=== PATIENT | female | born 1990 | race Native Hawaiian/Other Pacific Islander ===

== ENCOUNTER 2022-02-02 09:12 | Emergency (ER) | payer SELFPAY ==
[2022-02-02 09:20] VITALS: BP 130/92; PULSE 83; RESP 14; TEMP 36.9; O2SAT 98; BMI 25.6
--- NOTE | 2022-02-02 09:48 | ED.GENADULT ---
HPI - General Adult General Chief complaint: Sore Throat Stated complaint: Short of breath, rash all over Time Seen by Provider: 02/02/22 09:43 Source: patient Mode of arrival: ambulatory Limitations: no limitations History of Present Illness HPI narrative: 31-year-old female coming in today complaining of a sore throat going on for 2 days. Woke up this morning with a rash throughout her body. No fevers or chills. It does hurt to swallow with ibuprofen and Tylenol do help her symptoms and she is able to stay hydrated. She denies any chest or neck pain. She denies any diarrhea or sick contacts. Related Data Previous Rx's Medication Instructions Recorded amoxicillin 500 mg capsule 500 mg PO BID 10 days #20 caps 02/02/22 Allergies Allergy/AdvReac Type Severity Reaction Status Date / Time No Known Drug Allergies Allergy Verified 02/02/22 09:31 Review of Systems Status of ROS: Reports: 10 or more systems reviewed and unremarkable except as noted in History and below [facility] Social History Smoking Status: Current every day smoker What tobacco products do you use: cigarettes How often do you have a drink containing alcohol: 2-3 times a week AUDIT-C Alcohol total score: 3 Non-prescribed substance use: former substance user Exam Narrative: Exam Narrative: Well-nourished well-developed patient in no acute distress. Alert and oriented. Answers questions appropriately. Mood and affect are appropriate. Thoughts are goal oriented and rational. No tangential or magical thinking noted. Patient speaks in full sentences without needing to catch her breath. HEENT: Normocephalic atraumatic. Pupils are equally round reactive to light. Extraocular muscles are intact. Conjunctivae are moist without any icterus noted. Moist mucous membranes. Posterior pharynx shows tonsillar swelling, erythema and bilateral exudates. Soft palate is in its normal position, no swelling of the uvula or soft palate present. Neck is soft without any lymphadenopathy or thyromegaly. No masses are appreciated. Cardiovascular: Heart is regular rate and rhythm S1 and S2 are present. Lungs: Clear to auscultation bilaterally no wheezes rhonchi or rales are appreciated. Patient takes deep breaths without any discomfort. Skin: Well perfused. She has a fine sandpaper-like rash down her neck and chest. Seems to be resolving over the rest of the body. Const: Vital Signs, click to edit/add: Vital Signs - 24 hr 02/02/22 09:20 Temperature 98.5 F Pulse Rate [Pulse Oximeter] 83 Respiratory Rate 14 Blood Pressure [Ri ght Upper Arm] 130/92 H Pulse Oximetry 98 Oxygen Delivery Me thod Room Air Course Vital Signs Vital signs: Initial Vital Signs Temperature 98.5 F 02/02/22 09:20 Temperature Source Temporal Artery Scan 02/02/22 09:20 Pulse Rate 83 02/02/22 09:20 Pulse Rhythm 02/02/22 09:20 Respiratory Rate 14 02/02/22 09:20 Blood Pressure 130/92 H 02/02/22 09:20 Blood Pressure Mean 104 02/02/22 09:20 Blood Pressure Position Sitting 02/02/22 09:20 Pulse Oximetry 98 02/02/22 09:20 Oxygen Delivery Method 02/02/22 09:20 Vital Signs Temperature 98.5 F 02/02/22 09:20 Pulse Rate 83 02/02/22 09:20 Respiratory Rate 14 02/02/22 09:20 Blood Pressure 130/92 H 02/02/22 09:20 Pulse Oximetry 98 02/02/22 09:20 Oxygen Delivery Method 02/02/22 09:20 Temperature 98.5 F 02/02/22 09:20 Pulse Rate 83 02/02/22 09:20 Respiratory Rate 14 02/02/22 09:20 Blood Pressure 130/92 H 02/02/22 09:20 Pulse Oximetry 98 02/02/22 09:20 Oxygen Delivery Method 02/02/22 09:20 Medical Decision Making [facility] Narrative Medical decision making narrative: 31-year-old female with a very classic appearing case of strep pharyngitis. Will treat with amoxicillin. Discussed reasons for follow-up. Discharge Plan Discharge Clinical Impression: Acute streptococcal pharyngitis Patient Disposition: Home, Self-Care Condition: Stable Additional Instructions: Take all antibiotics as prescribed. Return to the ER if you are getting worse instead of better over the next 1-2 days. Okay to use Tylenol and/or ibuprofen as needed/as directed for discomfort. Make sure to stay well hydrated by drinking small amounts of fluid frequently throughout the day. Prescriptions: New amoxicillin 500 mg capsule 500 mg PO BID 10 Days Qty: 20 0RF Stand Alone Forms: [facility] Info Instructions
[2022-02-02 10:05] VITALS: BP 130/92; PULSE 83; RESP 14; TEMP 36.9; O2SAT 98
== END 2022-02-02 10:14 | disposition home or self-care (01) ==
LOC: ED 09:59
PROVIDERS: Emergency Provider Family Medicine
DX: J02.0 Streptococcal pharyngitis (principal); B95.5 Unspecified streptococcus as the cause of diseases classified elsewhere
CPT/HCPCS: 99282; 99283

== ENCOUNTER 2022-06-05 09:24 | Emergency (ER) | payer SELFPAY ==
[2022-06-05 09:32] VITALS: BP 133/72; PULSE 74; RESP 16; TEMP 36.7; O2SAT 99; BMI 25.6
[2022-06-05 11:30] LABS: Basophils Absolute Auto 0.01 K/uL (0.00-0.30); Basophils Percent Auto 0.1 % (0.0-3.0); Eosinophils Absolute Auto 0.01 K/uL (0.00-0.50); Eosinophils Percent Auto 0.1 % (0.0-7.0); Hematocrit 39.4 % (33.0-51.0); Hemoglobin* 13.1 gm/dL (12.0-16.0); Immature Granulocytes Abs Auto 0.01 K/uL (0.00-0.30); Immature Granulocytes Pct Auto 0.1 %; Lymphocytes Percent Auto 15.4 % (20-44); Mean Corpuscular HGB Conc 33 gm/dL (32-36); Mean Corpuscular Hemoglobin 28 pg (26-34); Mean Corpuscular Volume 84 fL (80-100); Monocytes Percent Auto 2.7 % (0.0-11.0); Neutrophils Percent Auto 81.6 % (42.0-72.0); Platelet Count* 275 K/uL (140-440); RDW Coefficient of Variation % 12.8 % (11.5-15.5); Red Blood Count 4.67 m/uL (4.00-5.20); White Blood Count* 8.87 K/uL (4.50-11.00)
[2022-06-05] MEDS: ONDANSETRON 2 MG/ML inj 4 MG IVP (11:30)
[2022-06-05] MEDS: 0.9 % SODIUM CHLORIDE 1000 ml 1,000 ML IV (11:31)
[2022-06-05 11:32] LABS: Slide Review Reflex No
[2022-06-05 11:44] LABS: Chloride* 105 mmol/L (96-114); Potassium* 3.7 mmol/L (3.6-5.1); Sodium* 139 mmol/L (135-149)
[2022-06-05 11:47] LABS: Blood Urea Nitrogen* 9 mg/dL (5-24); Carbon Dioxide* 21 mmol/L (20-32); Creatinine* 0.5 mg/dL (0.5-1.5); Est. Creatinine Clearance* 130.12; Estimated Glomerular Filt Rate 129 ml/min
[2022-06-05 11:48] LABS: Calcium* 9.2 mg/dL (8.4-10.6); Glucose* 77 mg/dL (60-115)
--- NOTE | 2022-06-05 11:58 | CRLHL7_ITS ---
For Patients: As a result of the Century Cures Act, medical imaging exams and procedure reports are released immediately into your electronic medical record. You may view this report before your referring provider. If you have questions, please contact your health care provider. Indication: Cough Technique: Chest 2 views Comparison: None Findings/Impression: Cardiovascular and mediastinum: Heart size and vasculature are normal in caliber and appearance. Mediastinum is within normal limits. Lungs and pleural spaces: Lungs are clear. No sign of infiltrate or mass. No sign of pleural effusion. No pneumothorax. Bones and soft tissues: No significant findings. Dictated by Cornelio Ocampo MD @ 06/05/2022 1:28:16 PM (Electronically Signed)
[2022-06-05 12:06] LABS: PCR FLU A Negative PCR FLU A (Negative); PCR FLU B Negative PCR FLU B (Negative); PCR RSV Negative PCR RSV (Negative)
[2022-06-05 12:11] LABS: SARS PCR* Negative SARS-CoV-2 (Negative)
[2022-06-05 12:50] VITALS: BP 102/64; PULSE 70; O2SAT 99
[2022-06-05 14:19] VITALS: BP 107/70; PULSE 66; O2SAT 99
--- NOTE | 2022-06-05 16:08 | ED_ITS ---
HPI - Nausea/Vomiting/Diarrhea General Date Seen: 06/05/22 Chief complaint: Nausea/Vomiting Stated complaint: Vomiting Time Seen by Provider: 06/05/22 11:03 Source: patient Mode of arrival: ambulatory Limitations: no limitations History of Present Illness HPI Narrative: Patient is a zara 32-year-old female who presents here for evaluation of vomiting, a little bit a nausea no vomiting tends to occur when she has coughing jag. No fevers or chills although couple days ago she did feel somewhat ill, there is no rashes, she has had no dysuria frequency, she does not think she is , she has a decreased urination, because she has not been taking oral fluids very well. Denies any chest pain, MD elicited complaint: nausea and vomiting Onset (ago): day(s) Description of vomiting: food contents and watery Associated nausea: Yes Associated abdominal pain: No Location of pain: none Relieving factors: none Associated symptoms: denies other symptoms Related Data Previous Rx's Medication Instructions Recorded ondansetron 4 mg disintegrating 4 mg PO Q8-12H PRN nausea and 06/05/22 tablet vomiting #14 tabs Allergies Allergy/AdvReac Type Severity Reaction Status Date / Time No Known Drug Allergies Allergy Verified 02/02/22 09:31 Review of Systems Status of ROS: Reports: 10 or more systems reviewed and unremarkable except as noted in History and below GI: Reports: nausea PFSH PFSH Social History Smoking Status: Current every day smoker What tobacco products do you use: cigarettes How often do you have a drink containing alcohol: 2-3 times a week AUDIT-C Alcohol total score: 3 Non-prescribed substance use: former substance user Exam Narrative: Exam Narrative: Onc on examination room 4 she is in no apparent distress she is pleasant alert speaking to me normally, pupils equal round reactive to light there is no scleral icterus redness TMs are normal oropharynx normal there is no adenopathy anterior posterior chains, her chest is clear, there is no meningismus, heart sounds are normal abdomen is soft there is no guarding no no organomegaly, bowel sounds are normal, no tenderness is listed extremities are all normal, hydration status is within normal limits. And she moves extremities independently and well with normal neurologic function. Const: Vital Signs, click to edit/add: Vital Signs - 24 hr 06/05/22 09:32 06/05/22 12:50 06/05/22 14:19 Temperature 98.0 F Pulse Rate [Left P ulse Oximeter] 74 70 66 Respiratory Rate 16 Blood Pressure [Ri ght Upper Arm] 133/72 102/64 107/70 Pulse Oximetry 99 99 99 Oxygen Delivery Me thod Room Air Room Air Room Air Documenting provider has reviewed patient's vital signs: yes Course Course Hospital Course: Patient improved in her time here, she has the no further vomiting she received fluids, along with some Zofran. Is requesting discharge Vital Signs Vital signs: Initial Vital Signs Temperature 98.0 F 06/05/22 09:32 Temperature Source Temporal Artery Scan 06/05/22 09:32 Pulse Rate 74 06/05/22 09:32 Pulse Rhythm 06/05/22 09:32 Pulse Strength 3+ Normal 06/05/22 09:32 Respiratory Rate 16 06/05/22 09:32 Blood Pressure 133/72 06/05/22 09:32 Blood Pressure Mean 92 06/05/22 09:32 Blood Pressure Position Sitting 06/05/22 09:32 Pulse Oximetry 99 06/05/22 09:32 Oxygen Delivery Method 06/05/22 09:32 Vital Signs Temperature 98.0 F 06/05/22 09:32 Pulse Rate 74 06/05/22 09:32 Respiratory Rate 16 06/05/22 09:32 Blood Pressure 133/72 06/05/22 09:32 Pulse Oximetry 99 06/05/22 09:32 Oxygen Delivery Method 06/05/22 09:32 Temperature 98.0 F 06/05/22 09:32 Pulse Rate 66 06/05/22 14:19 Respiratory Rate 16 06/05/22 09:32 Blood Pressure 107/70 06/05/22 14:19 Pulse Oximetry 99 06/05/22 14:19 Oxygen Delivery Method 06/05/22 14:19 MDM - Nausea/Vomiting/Diarrhea MDM Narrative Medical decision making narrative: Differential diagnosis includes but is not limited to viral gastroenteritis, drug food poisoning, pyloric stenosis, gastritis, pancreatitis, hepatitis, cholecystitis, appendicitis, bowel obstruction, hyperemesis, cyclic vomiting syndrome, bulimia nervosa, migraine headache, motion sickness and medication side effect. These include the life threatening complications of appendicitis, drug food poisoning and bowel obstruction. Medical Records Attestation: I reviewed the patient's medical records. Lab Data Attestation: I reviewed the patient's lab results. Labs: Lab Results 06/05/22 06/05/22 06/05/22 Range/Units 11:15 11:15 11:15 WBC 8.87 (4.50-11.00) K/uL RBC 4.67 (4.00-5.20) m/uL Hgb 13.1 (12.0-16.0) gm/dL Hct 39.4 (33.0-51.0) % MCV 84 (80-100) fL MCH 28 (26-34) pg MCHC 33 (32-36) gm/dL RDW Coeff of Mikayla 12.8 (11.5-15.5) % Plt Count 275 (140-440) K/uL Neut % (Auto) 81.6 H (42.0-72.0) % Lymph % (Auto) 15.4 L (20-44) % [place] % (Auto) 2.7 (0.0-11.0) % Eos % (Auto) 0.1 (0.0-7.0) % Baso % (Auto) 0.1 (0.0-3.0) % Neut # (Auto) 7.20 H (1.7-7.0) K/uL Lymph # (Auto) 1.40 (0.90-2.90) K/uL [place] # (Auto) 0.20 (0.00-0.90) K/UL Eos # (Auto) 0.01 (0.00-0.50) K/uL Baso # (Auto) 0.01 (0.00-0.30) K/uL Sodium 139 (135-149) mmol/L Potassium 3.7 (3.6-5.1) mmol/L Chloride 105 (96-114) mmol/L Carbon Dioxide 21 (20-32) mmol/L BUN 9 (5-24) mg/dL Creatinine 0.5 (0.5-1.5) mg/dL Estimated Creat Clear 130.12 Estimated GFR 129 ml/min Glucose 77 (60-115) mg/dL Calcium 9.2 (8.4-10.6) mg/dL SARS-CoV-2 (PCR) Negative SARS-CoV-2 (Negative) Influenza Type A (PCR) Negative PCR FLU A (Negative) Influenza Type B (PCR) Negative PCR FLU B (Negative) RSV (PCR) Negative PCR RSV (Negative) Discharge Plan Discharge Clinical Impression: Cough, Nausea & vomiting Patient Disposition: Home, Self-Care Condition: Stable Instructions: Acute Nausea and Vomiting (ED), Acute Cough (ED) Additional Instructions: Home rest use Zofran, lots of fluids rest I think this will run its course, as I believe it is most likely viral. Return as needed Prescriptions: New ondansetron 4 mg tablet,disintegrating 4 mg PO Q8-12H PRN (Reason: nausea and vomiting) Qty: 14 0RF Follow Up/Referrals: Provider,Not a Local [Primary Care Provider] - Stand Alone Forms: [employer] Info Instructions
== END 2022-06-05 14:22 | disposition home or self-care (01) ==
PROVIDERS: Emergency Provider Family Medicine
DX: R05.9 Cough, unspecified (principal); R11.2 Nausea with vomiting, unspecified
CPT/HCPCS: 36415; 71046; 80048; 85025; 87502; 87634; 87635; 96361; 96374; 99283; 99284; J2405; J7030

== ENCOUNTER 2022-06-10 15:46 | Emergency (ER) | payer SELFPAY ==
[2022-06-10 15:49] VITALS: BP 156/74; PULSE 80; RESP 18; TEMP 36.8; O2SAT 99; BMI 25.6
--- NOTE | 2022-06-10 16:01 | ED.GENADULT ---
HPI - General Adult General Time Seen by Provider: 16:01 Date Seen: 06/10/22 Chief complaint: Nausea/Vomiting Stated complaint: Vomiting Time Seen by Provider: 06/10/22 15:47 Source: patient Mode of arrival: ambulatory Limitations: no limitations History of Present Illness HPI narrative: Patient is a 32-year-old female who is here few days ago for nausea and vomiting. She got some Zofran that helped her quite a bit. She had a full battery of tests that were all unremarkable including viral testing, electrolytes, CBC. Patient reports she is generally quite healthy, she has had a slight cough she had a normal chest x-ray done within the last few days. She denies last menstrual period was early this month however. Patient has no chest pain breathing difficulty abdominal pain. No vaginal bleeding, no dysuria. No skin rashes no nuchal rigidity Related Data Previous Rx's Medication Instructions Recorded ondansetron 4 mg disintegrating 4 mg PO Q8-12H PRN nausea and 06/05/22 tablet vomiting #14 tabs Allergies Allergy/AdvReac Type Severity Reaction Status Date / Time No Known Drug Allergies Allergy Verified 02/02/22 09:31 Review of Systems Status of ROS: Reports: 10 or more systems reviewed and unremarkable except as noted in History and below PFSH PFSH Social History Smoking Status: Current every day smoker What tobacco products do you use: cigarettes How often do you have a drink containing alcohol: 2-3 times a week AUDIT-C Alcohol total score: 3 Non-prescribed substance use: former substance user and marijuana (any form) Exam Narrative: Exam Narrative: Objective vital signs unremarkable other than slightly elevated blood pressure HEENT is unremarkable no facial asymmetry mouth well-hydrated Neck is supple Chest clear Heart rhythm regular without murmur Abdomen benign Extremities are no edema Neurologic nonfocal in upper lower extremities Const: Vital Signs, click to edit/add: Vital Signs - 24 hr 06/10/22 15:49 Temperature 98.2 F Pulse Rate [Right Pulse Oximeter] 80 Respiratory Rate 18 Blood Pressure [Ri ght Upper Arm] 156/74 H Pulse Oximetry 99 Oxygen Delivery Me thod Room Air Course Vital Signs Vital signs: Initial Vital Signs Temperature 98.2 F 06/10/22 15:49 Temperature Source Temporal Artery Scan 06/10/22 15:49 Pulse Rate 80 12/25/22 15:49 Respiratory Rate 18 06/10/22 15:49 Blood Pressure 156/74 H 06/10/22 15:49 Blood Pressure Mean 101 06/10/22 15:49 Blood Pressure Position Sitting 06/10/22 15:49 Pulse Oximetry 99 06/10/22 15:49 Oxygen Delivery Method 06/10/22 15:49 Vital Signs Temperature 98.2 F 06/10/22 15:49 Pulse Rate 80 06/10/22 15:49 Respiratory Rate 18 06/10/22 15:49 Blood Pressure 156/74 H 06/10/22 15:49 Pulse Oximetry 99 06/10/22 15:49 Oxygen Delivery Method 06/10/22 15:49 Temperature 98.2 F 06/10/22 15:49 Pulse Rate 80 06/10/22 15:49 Respiratory Rate 18 06/10/22 15:49 Blood Pressure 156/74 H 06/10/22 15:49 Pulse Oximetry 99 06/10/22 15:49 Oxygen Delivery Method 06/10/22 15:49 Medical Decision Making [facility] Narrative Medical decision making narrative: Patient was recently here for nausea vomiting and had a full battery tests are unremarkable. At this point she appears clinically nontoxic. She has had a mild viral illness recently I think it be reasonable to give her additional Zofran will give her some now and then prescription through [facility] for additional Zofran. Will also recheck her labs alert specific electrolytes CBC, test. This is the patient will be allowed to go home given that she appears nontoxic and the Zofran was working for her she should follow up with primary care in the next 2-3 days certainly sooner change concerns worsening she was comfortable plan will follow up as directed. Lab Data Labs: Lab Results 06/10/22 06/10/22 06/10/22 Range/Units 16:15 16:15 16:15 WBC 8.17 (4.50-11.00) K/uL RBC 4.83 (4.00-5.20) m/uL Hgb 13.7 (12.0-16.0) gm/dL Hct 40.1 (33.0-51.0) % MCV 83 (80-100) fL MCH 28 (26-34) pg MCHC 34 (32-36) gm/dL RDW Coeff of Mikayla 12.6 (11.5-15.5) % Plt Count 272 (140-440) K/uL Neut % (Auto) 75.0 H (42.0-72.0) % Lymph % (Auto) 20.8 (20-44) % [place] % (Auto) 3.5 (0.0-11.0) % Eos % (Auto) 0.4 (0.0-7.0) % Baso % (Auto) 0.2 (0.0-3.0) % Neut # (Auto) 6.10 (1.7-7.0) K/uL Lymph # (Auto) 1.70 (0.90-2.90) K/uL [place] # (Auto) 0.30 (0.00-0.90) K/UL Eos # (Auto) 0.03 (0.00-0.50) K/uL Baso # (Auto) 0.02 (0.00-0.30) K/uL Sodium 140 (135-149) mmol/L Potassium 3.4 L (3.6-5.1) mmol/L Chloride 104 (96-114) mmol/L Carbon Dioxide 22 (20-32) mmol/L BUN 9 (5-24) mg/dL Creatinine 0.5 (0.5-1.5) mg/dL Estimated Creat Clear 130.12 Estimated GFR 129 ml/min Glucose 85 (60-115) mg/dL Calcium 9.8 (8.4-10.6) mg/dL C-Reactive Protein 0.7 (0.5-1.0) mg/dL HCG, Qual Positive (Negative) Discharge Plan Discharge Clinical Impression: Nausea & vomiting Patient Disposition: Home, Self-Care Condition: Stable Additional Instructions: Rest, fluids, Zofran as needed, follow-up with primary care in the next 2-3 days, light diet recommended as well. Activity Level: Light activity Discharge Diet: Regular Prescriptions: No Action ondansetron 4 mg tablet,disintegrating 4 mg PO Q8-12H PRN (Reason: nausea and vomiting) Qty: 14 0RF Follow Up/Referrals: Provider,Not a Local [Primary Care Provider] - Stand Alone Forms: [employer] Info Instructions
[2022-06-10] MEDS: ONDANSETRON ODT 4 MG TAB PO (16:06)
[2022-06-10 16:25] LABS: Basophils Absolute Auto 0.02 K/uL (0.00-0.30); Basophils Percent Auto 0.2 % (0.0-3.0); Eosinophils Absolute Auto 0.03 K/uL (0.00-0.50); Eosinophils Percent Auto 0.4 % (0.0-7.0); Hematocrit 40.1 % (33.0-51.0); Hemoglobin* 13.7 gm/dL (12.0-16.0); Immature Granulocytes Abs Auto 0.01 K/uL (0.00-0.30); Immature Granulocytes Pct Auto 0.1 %; Lymphocytes Percent Auto 20.8 % (20-44); Mean Corpuscular HGB Conc 34 gm/dL (32-36); Mean Corpuscular Hemoglobin 28 pg (26-34); Mean Corpuscular Volume 83 fL (80-100); Monocytes Percent Auto 3.5 % (0.0-11.0); Platelet Count* 272 K/uL (140-440); RDW Coefficient of Variation % 12.6 % (11.5-15.5); Red Blood Count 4.83 m/uL (4.00-5.20); White Blood Count* 8.17 K/uL (4.50-11.00)
[2022-06-10 16:26] LABS: Slide Review Reflex No
--- NOTE | 2022-06-10 16:30 | ED.NURSE ---
pt given instymeds for peng
[2022-06-10 16:54] LABS: Chloride* 104 mmol/L (96-114); Potassium* 3.4 mmol/L (3.6-5.1); Sodium* 140 mmol/L (135-149)
[2022-06-10 16:57] LABS: Creatinine* 0.5 mg/dL (0.5-1.5); Est. Creatinine Clearance* 130.12; Estimated Glomerular Filt Rate 129 ml/min
[2022-06-10 16:58] LABS: Blood Urea Nitrogen* 9 mg/dL (5-24); Calcium* 9.8 mg/dL (8.4-10.6); Carbon Dioxide* 22 mmol/L (20-32); Glucose* 85 mg/dL (60-115)
[2022-06-10 17:01] LABS: C Reactive Protein* 0.7 mg/dL (0.5-1.0)
[2022-06-10 17:05] LABS: HCG Qualitative Serum* Positive (Negative)
== END 2022-06-10 16:31 | disposition home or self-care (01) ==
LOC: ED 16:18
PROVIDERS: Emergency Provider Family Medicine
DX: R11.2 Nausea with vomiting, unspecified (principal); Z32.01 Encounter for pregnancy test, result positive
CPT/HCPCS: 36415; 80048; 84703; 85025; 86140; 99283; A9270

== ENCOUNTER 2024-07-06 17:14 | Emergency (ER) | payer OTHER, SELFPAY ==
[2024-07-06 17:17] VITALS: BP 119/83; PULSE 69; RESP 18; TEMP 36.8; O2SAT 99; BMI 26.5
[2024-07-06 17:57] LABS: Strep A DNA Probe* DETECTED (Not Detectd)
[2024-07-06 18:10] LABS: PCR FLU A POSITIVE PCR FLU A (Negative); PCR FLU B Negative PCR FLU B (Negative); PCR RSV Negative PCR RSV (Negative); SARS PCR* Negative SARS-CoV-2 (Negative)
--- NOTE | 2024-07-06 18:16 | ED.GENADULT ---
HPI - General Adult General Chief complaint: Sore Throat Stated complaint: sore throat Time Seen by Provider: 07/06/24 18:06 History of Present Illness HPI narrative: This 34-year-old female comes in reporting sore throat, fever, cough, nasal congestion, and body aches and pains. These symptoms started almost a week ago. She arrives here with normal vital signs. Related Data Previous Rx's ?Medication ?Instructions ?Recorded amoxicillin 500 mg capsule 500 mg PO TID 7 days #21 caps 07/06/24 Allergies Allergy/AdvReac Type Severity Reaction Status Date / Time No Known Drug Allergies Allergy Verified 02/02/22 09:31 Review of Systems Status of ROS: Reports: 10 or more systems reviewed and unremarkable except as noted in History and below Narrative: Constitutional: No fevers, no weight gain or loss. Eyes: No discharge. No vision changes. HENT: No ear pain. She reports nasal congestion and sore throat. Cardiovascular: No chest pain, no palpitations. Respiratory: No shortness of breath, no wheezes. She reports a cough. Gastrointestinal: No abdominal pain, no vomiting, no diarrhea. Genitourinary: No dysuria, no hematuria. Musculoskeletal: Normal range of motion. Skin: No rashes, no pruritis. Neurological: No dizziness, weakness, sensory change, speech change. Endo/Heme/Allergies: No bruising or bleeding. No polydipsia. Pysch: no suicidality, no anxiety, no insomnia. All other systems reviewed and are negative. [facility] Social History Smoking Status: Current every day smoker What tobacco products do you use: cigarettes How often do you have a drink containing alcohol: 2-3 times a week AUDIT-C Alcohol total score: 3 Non-prescribed substance use: former substance user and marijuana (any form) Exam Narrative: Exam Narrative: Constitutional: Well-developed, well-nourished, no acute distress. HEENT: Normocephalic, atraumatic. Bilateral tonsillar hypertrophy without exudate. Pharyngeal erythema. Neck: Normal range of motion. Nontender. Supple. Heart: Regular. No murmurs. Normal rate. Intact distal pulses. Lungs: Clear to auscultation. No chest discomfort. No wheezes, rhonchi, or rales. Abdomen: Normal bowel sounds. Nontender. No rebound tenderness. Genitalia: Deferred. Back: No midline tenderness. Normal range of motion. Extremities: Normal range of motion. No injury. Skin: Intact. No rash. Warm. No erythema or pallor. Neurologic: No altered sensation. No weakness. Alert and oriented. Psychiatric: No suicidality. No anxiety or depression. No insomnia. Nursing notes and vitals signs are reviewed. Const: Vital Signs, click to edit/add: Vital Signs - 24 hr 07/06/24 17:17 Temperature 98.3 F Pulse Rate [Pulse Oximeter] 69 Respiratory Rate 18 [facility] 119/83 Pulse Oximetry 99 Oxygen Delivery Me thod Room Air Course Vital Signs Vital signs: Initial Vital Signs Temperature 98.3 F 07/06/24 17:17 Temperature Source Temporal Artery Scan 07/06/24 17:17 Pulse Rate 69 07/06/24 17:17 Pulse Rhythm Regular 07/06/24 17:17 Respiratory Rate 18 07/06/24 17:17 Blood Pressure 119/83 07/06/24 17:17 Blood Pressure Mean 95 07/06/24 17:17 Blood Pressure Position Sitting 07/06/24 17:17 Pulse Oximetry 99 07/06/24 17:17 Oxygen Delivery Method Room Air 07/06/24 17:17 Vital Signs Temperature 98.3 F 07/06/24 17:17 Pulse Rate 69 07/06/24 17:17 Respiratory Rate 18 07/06/24 17:17 Blood Pressure 119/83 07/06/24 17:17 Pulse Oximetry 99 07/06/24 17:17 Oxygen Delivery Method Room Air 07/06/24 17:17 Temperature 98.3 F 07/06/24 17:17 Pulse Rate 69 07/06/24 17:17 Respiratory Rate 18 07/06/24 17:17 Blood Pressure 119/83 07/06/24 17:17 Pulse Oximetry 99 07/06/24 17:17 Oxygen Delivery Method Room Air 07/06/24 17:17 Medical Decision Making MDM Narrative Medical decision making narrative: This patient comes in with above-stated upper respiratory symptoms. Her rapid strep test and influenza a test returned positive. She is outside of the window of time where Tamiflu would be of assistance for her. She did receive an oral dose of dexamethasone and a prescription for amoxicillin. Lab Data Labs: Lab Results 07/06/24 Range/Units 17:30 SARS-CoV-2 (PCR) Negative SARS-CoV-2 (Negative) Influenza Type A (PCR) POSITIVE PCR FLU A A (Negative) Influenza Type B (PCR) Negative PCR FLU B (Negative) RSV (PCR) Negative PCR RSV (Negative) Group A Strep DNA DETECTED A (Not Detectd) Discharge Plan Discharge Clinical Impression: Acute streptococcal pharyngitis, Influenza A Patient Disposition: Home, Self-Care Condition: Stable Additional Instructions: Take medication as directed. Use [id number] medicines also as needed and directed. Follow up with MD return if worsening. Prescriptions: New amoxicillin 500 mg capsule 500 mg PO TID 7 Days Qty: 21 0RF Follow Up/Referrals: Provider,Not a Local [Primary Care Provider] - Stand Alone Forms: [employer] Info Instructions
[2024-07-06] MEDS: dexAMETHasone 4 MG/ML VIAL 10 MG IM (18:40)
--- OUTSIDE RECORDS SUMMARY | 2024-07-07 00:12 | XMS_ITS | Clinical Summary ---
Author Organization [employer] [facility] Address [place], [place] [address] Care Team Providers Care Rotary Driller Prospecting Name Role Phone Pcp, No Primary Care Provider Unavailabl e Allergies No known active allergies Medications No known medications Active Problems Problem Noted Date Diagnosed Date Nexplanon in place 05/26/2018 Latent tuberculosis 10/24/2010 Overview (10/24/2010): Positive PPD September 2010 Resolved Problems Problem Noted Date Diagnosed Date Resolved Date Major depressive disorder, r ecurrent episode, severe, specified as with psychotic behavior 08/20/2008 07/23/2017 Polysubstance dependence 08/20/200811/2017 Anxiety D/O, NOS. 06/24/2008 06/24/2008 Anxiety Disorder NOS 06/23/2008 009 Major Depressive Disorder, S brandon Episode, Moderate. 05/25/2008 08/20/2008 Insomnia 05/25/2008 08/20/2008 Self inflicted injury 2017 Overview (05/25/2008): pt cuts on arms and face about 5x a month Immunizations Name Administration Dates Next Due DTaP 04/16/2000,08/28/1999,03/26/1997 HPV 9 (Gardasil 9) 05/26/2018 Hepatitis B (Peds) 07/16/2000,12/05/1999, 000 Human Papilloma Virus Vaccine 01/14/2013, 010 Inactivated Polio Vaccine 10/30/1999,08/28/1999, 05/21/1997 Influenza A (H1N1), Inactiva fabiola (Age >=3 Years) 05/27/2009 MMR 10/30/1999,08/28/1999 Meningococcal Vaccine (Menactra) 07/01/2009 Td (Age >=7 Years) 04/16/2000 Tdap 07/01/2009 Varicella Vaccine 07/01/2009,06/17/1994 Family History Medical History Relation Name Comments Cancer Maternal Grandfather brain Diabetes Mother pre-diabetes Heart Disease No Family History Psychiatric illness No Family History Relation Name Status Comments Father Alive Maternal Grandfather Maternal Grandmother Alive Mother Alive Sister 1 Alive Sister 2 Alive Sister 3 Alive Social History Tobacco Use Types Packs/Day Years Used Date Smoking Tobacco: Former Cigarettes Smokeless Tobacco: Never Tobacco Cessation:Counseling Given: Yes Alcohol Use Standard Drinks/Week Comments Yes 0 (1 standard drink = 0.6 oz pur e alcohol) occassional PHQ-2 Answer Date Recorded PHQ-2 Score 0 08/17/2018 Comments No Sex and Gender Information Value Date Recorded Sex Assigned at Not on file Legal Sex Female 5:41 AM EBD TEACHER Gender Identity Not on file Sexual Orientation Not on file 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 Not on file Not on file Not on file Obstetrics History Last Filed Vital Signs Vital Sign Reading Time Taken Comments Blood Pressure 125/75 09/20/2018 11:21 AM CDT Pulse 58 09/20/2018 11:21 AM CDT Temperature 36.4 C (97.5 F) 09/20/2018 11:21 AM CDT Respiratory Rate 18 12/28/2010 3:31 PM CDT Oxygen Saturation 96% 06/02/2018 8:45 AM EBD TEACHER Inhaled Oxygen Concentration - - Weight 67.6 kg (149 lb) 09/20/2018 11:21 AM CDT Height 158.8 cm (5' 2.52) 09/20/2018 11:21 AM C DT Body Mass Index 26.8 09/20/2018 11:21 AM CDT Plan of Treatment Health Maintenance Due Date Last Done Comments Depression screening for age 12+ 05/27/2019 05/27/2018, 05/26/2018, 07/23/2017 Tetanus booster 07/01/2019 07/01/2009, 04/16/2000 BMI (ht and wt on same day) for age 18+ 09/21/2019 09/20/2018, 06/02/2018, 05/26/2018, Additional history exists Pap test for age 21-65 05/26/2021 05/26/2018 COVID-19 vaccine series ( season) 2024 Influenza for age 9-49 02/16/2024 05/27/2009 Tdap Completed 07/01/2009 Hepatitis C screening for age 18-79 Completed 01/14/2013, 09/25/2010, 08/20/2008 HIV for age 15-65 Completed 05/26/2018, , 09/25/2010, Additional history exists Pneumococcal series for age 6-49 Aged Out No longer eligible based on patient's age to complete this topic Procedures Procedure Name Priority Date/Time Associated Diagnosis Comments ANTI HIV 1/2 Routine 05/26/2018 12:12 PM EBD TEACHER Screen for STD (sexually transmitted disease) SPORTS CENTRE MANAGER THIN PREP PAP SCREEN IMAGED Routine 05/26/2018 11:50 AM EBD TEACHER Screening for malignant neoplasm of cervix ANTI HCV Routine 01/14/2013 12:50 PM CDT Screen for STD (sexually transmitted disease) from Last 3 Months or Most Recently Relevant to Health Maintenance Results * ANTI HIV 1/2 (05/26/2018 12:12 PM EBD TEACHER) HIV-1/HIV-2 ANTIBODY Non-Reacti ve Non-Reacti ve 05/26/2018 8:52 PM EBD TEACHER [facility] [employer] [facility] Comment:HIV-1 p24 and HIV-1/ HIV-2 Ab not detected. Blood BLOOD SPECIMEN / Unknown Venipuncture / Unknown 05/26/2018 12:12 PM EBD TEACHER 05/26/2018 12:14 PM EBD TEACHER us Mary Lou Helms MD SEND OUTS Final Result [facility] [address] [place] [address], * SPORTS CENTRE MANAGER THIN PREP PAP SCREEN IMAGED [[id number]] (05/26/2018 11:50 AM EBD TEACHER) Case Report Gynecologic Cytology Report Case: [id number] Authorizing Provider: Mary Lou Helms MD Collected: 05/26/2018 1150 Ordering Location: [facility] Received: 05/26/2018 1208 Clinic First Screen: Cleo Sheikh Specimen: SPORTS CENTRE MANAGER ThinPrep Vial Screening, Cervical 06/07/2018 12:55 PM EBD TEACHER [facility] [employer] [facility] INTERPRETATION/ RESULT NEGATIVE FOR INTRAEPITHELIAL LESION OR MALIGNANCY (NIL) (none) 06/07/2018 12:55 PM EBD TEACHER [facility] ENTRAL LABORATORY NISM(S) Shift in marie suggestive of bacterial vaginosis 06/07/2018 12:55 PM EBD TEACHER [facility] [employer] [facility] SPECIMEN ADEQUACY Satisfactory for evaluation Endocervical component present 06/07/2018 12:55 PM EBD TEACHER [facility] ENTRAL LABORATORY HPV REQUEST HPV if ASCUS 06/07/2018 12:55 PM EBD TEACHER [facility] ENTRAL LAB[facility] Date of LMP 05/12/2018 06/07/2018 12:55 PM EBD TEACHER [facility] EN[facility] Last Pap Date 201406/07/2018 12:55 PM EBD TEACHER [facility] EN[facility]AL LAB[facility] Last Pap Result First Pap/Unknown 12:55 PM EBD TEACHER [facility] ENTRAL LAB[facility]ORY Abnormal Pap or [place] Bx in last 5 years No 06/07/2018 12:55 PM EBD TEACHER [facility] EN[facility]AL LAB[facility]ORY Menstrual Status Regular Periods 06/07/2018 12:55 PM EBD TEACHER [facility] ENTRAL LAB[facility]ATORY [place] Bx Done Today No 06/07/2018 12:55 PM EBD TEACHER [facility] EN[facility]AL LAB[facility] Additional Information None given 06/07/2018 12:55 PM EBD TEACHER [facility] EN[facility]AL LAB[facility]ORY Automated Review Successful 06/07/2018 12:55 PM EBD TEACHER [facility] EN[facility]AL LAB[facility]ORY Comment:Specimen processed s uccessfully by automated head of quality device, ThinPrep Imaging System, [employer] Note The pap test is a screening technique, not a diagnostic procedure. It is used primarily to screen for squamous cancers and precursor lesions. Published studies have shown that it is subject to both false negative and false positive results. The pap test should not be used as the sole means to diagnose or exclude pre-malignant and malignant lesions. Cytology is screened and interpreted at [facility], [facility] - [address], [place] [address] and [place] - [address] [place] [address]; [place] [address] and [facility] - [address]; [place] [address] and [facility] [address]; [place] [address] 06/07/2018 12:55 PM EBD TEACHER [facility]C ENTRAL LABORATORY Other (Cervical) Non-Blood / Unknown 05/26/2018 11:50 AM EBD TEACHER 05/26/2018 12:08 PM EBD TEACHER us Mary Lou Helms MD PATHOLOGY/CYTOLOGY Final Resu lt [facility] [address] [place] [address], [place] * ANTI HCV (01/14/2013 12:50 PM CDT) ANTI HCV Non-reacti ve [facility] Blood specimen (specimen) BLOOD SPECIMEN / Unknown 01/14/2013 12:50 PM CDT 01/14/2013 12:41 PM CDT us Elle Red MD SEND OUTS Final Result [facility] LAB[facility]ORY INTERNAL ZIP [id number] [place] [address] from Last 3 Months or Most Recently Relevant to Health Maintenance Advance Directives * Full Code (Latest Code Status on File) Date Activated Date Inactivated Comments 11/15/2008 3:24 PM 11/24/2008 12:59 PM * Full Code Date Activated Date Inactivated Comments 08/19/2008 6:43 PM 08/26/2008 1:09 PM * Full Code Date Activated Date Inactivated Comments 06/22/2008 8:24 PM 06/29/2008 1:53 PM * Full Code Date Activated Date Inactivated Comments 05/05/2008 9:19 PM 05/09/2008 3:38 PM Care Teams Rotary Driller Prospecting Relationship Specialty Start Date End Date Pcp, No . PCP - General 09/20/18
== END 2024-07-06 18:45 | disposition home or self-care (01) ==
LOC: ED 18:42
PROVIDERS: Emergency Provider Emergency Medicine Emergency Medical Services
DX: J02.0 Streptococcal pharyngitis (principal); J10.1 Influenza due to other identified influenza virus with other respiratory manifestations
CPT/HCPCS: 87631; 87651; 99283; 99284; J1100

== ENCOUNTER 2024-11-09 04:22 | Emergency (ER) | payer OTHER, SELFPAY ==
--- OUTSIDE RECORDS SUMMARY | 2024-11-09 04:24 | XMS_ITS | Clinical Summary ---
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 Not on file Not on file Obstetrics History Last Filed Vital Signs Vital Sign Reading Time Taken Comments Blood Pressure 125/75 09/20/2018 11:21 AM CDT Pulse 58 09/20/2018 11:21 AM CDT Temperature 36.4 C (97.5 F) 09/20/2018 11:21 AM CDT Respiratory Rate 18 12/28/2010 3:31 PM CDT Oxygen Saturation 96% 06/02/2018 8:45 AM TRIMMER LOADER Inhaled Oxygen Concentration - - Weight 67.6 [...] age 21-65 05/26/2021 05/26/2018 COVID-19 vaccine series (2023- season) 2024 Influenza Vaccine (Season Ended) 2025 Hepatitis B series for 19+ Completed 07/16, 12/05/1999, 10/30/1999 Tdap Completed 07/01/2009 Hepatitis C screening for age 18-79 Completed 01/14/2013, 09/25/2010, 08/20/2008 HIV for age 15-65 Completed 05/26/2018, , 09/25/2010, Additional history exists Pneumococcal series for age 6-49 Aged Out No longer eligible based on patient's age to complete this topic Procedures Procedure Name Priority Date/Time Associated Diagnosis Comments ANTI HIV 1/2 Routine 05/26/2018 12:12 PM TRIMMER LOADER Screen for STD (sexually transmitted disease) EDGE GRINDER MACHINE THIN PREP PAP SCREEN IMAGED Routine 05/26/2018 11:50 AM TRIMMER LOADER Screening for malignant neoplasm of cervix ANTI HCV Routine 01/14/2013 12:50 PM CDT Screen for STD (sexually transmitted disease) from Last 3 Months or Most Recently Relevant to Health Maintenance Results * ANTI HIV 1/2 (05/26/2018 12:12 PM TRIMMER LOADER) HIV-1/HIV-2 ANTIBODY Non-Reacti ve Non-Reacti ve 05/26/2018 8:52 PM TRIMMER LOADER [facility] [employer] [facility] Comment:HIV-1 p24 and HIV-1/ HIV-2 Ab not detected. Blood BLOOD SPECIMEN / Unknown Venipuncture / Unknown 05/26/2018 12:12 PM TRIMMER LOADER 05/26/2018 12:14 PM TRIMMER LOADER us Mary Lou Helms MD SEND OUTS Final Result [facility] LABORATORY [address] [place] [address], [place] * EDGE GRINDER MACHINE THIN PREP PAP SCREEN IMAGED [[id number]] (05/26/2018 11:50 AM TRIMMER LOADER) Case Report Gynecologic Cytology Report Case: [id number] Authorizing Provider: Mary Lou Helms MD Collected: 05/26/2018 1150 Ordering Location: [facility] Received: 05/26/2018 1208 Clinic First Screen: Cleo Sheikh Specimen: EDGE GRINDER MACHINE ThinPrep Vial Screening, Cervical 06/07/2018 12:55 PM TRIMMER LOADER [facility] ENTRAL LAB[facility]AT[facility] INTERPRETATION/ RESULT NEGATIVE FOR INTRAEPITHELIAL LESION OR MALIGNANCY (NIL) (none) 06/07/2018 12:55 PM TRIMMER LOADER [facility] ENTRAL LABORATORY at [address]255 TRIMMER LOADER ORGANISM(S) Shift in marie suggestive of bacterial vaginosis 06/07/2018 12:55 PM TRIMMER LOADER [facility] [employer] [facility] ENTRAL LABORATORY SPECIMEN ADEQUACY Satisfactory for evaluation Endocervical component present 06/07/2018 12:55 PM TRIMMER LOADER [facility] ENTRAL LABORATORY HPV REQUEST HPV if ASCUS 06/07/2018 12:55 PM TRIMMER LOADER [facility] EN[facility]AL LAB[facility] Date of LMP 05/12/2018 06/07/2018 12:55 PM TRIMMER LOADER [facility] EN[facility] LAB[facility] Last Pap Date 201406/07/2018 12:55 PM TRIMMER LOADER [facility] EN[facility] Last Pap Result First Pap/Unknown 12:55 PM TRIMMER LOADER [facility] EN[facility]AL LAB[facility] Abnormal Pap or [place] Bx in last 5 years No 06/07/2018 12:55 PM TRIMMER LOADER [facility] EN[facility] LAB[facility] Menstrual Status Regular Periods 06/07/2018 12:55 PM TRIMMER LOADER [facility] ENTRAL LAB[facility] [place] Bx Done Today No 06/07/2018 12:55 PM TRIMMER LOADER [facility] EN[facility] LAB[facility] Additional Information None given 06/07/2018 12:55 PM TRIMMER LOADER [facility] EN[facility]AL LAB[facility] Automated Review Successful 06/07/2018 12:55 PM TRIMMER LOADER [facility] ENTRAL LAB[facility] Comment:Specimen processed s uccessfully by automated insole and outsole splitter device, ThinPrep Imaging System, [employer] Note The pap test is a [...] lesions. Cytology is screened and interpreted at [facility], [facility] Laboratory - [address], [place] [address] and [facility] - [address]; [place] [address] and [facility] - [address]; [place] [address] and [facility] [address]; [place] [address] 06/07/2018 12:55 PM TRIMMER LOADER [facility] LAB[facility]-C ENTRAL LABORATORY Other (Cervical) Non-Blood / Unknown 05/26/2018 11:50 AM TRIMMER LOADER 05/26/2018 12:08 PM TRIMMER LOADER us Mary Lou Helms MD PATHOLOGY/CYTOLOGY Final Resu lt [facility]-CENTRAL LABORATORY [address] [place] [address], [place] * ANTI HCV (01/14/2013 12:50 PM CDT) ANTI HCV Non-reacti ve [facility] Blood specimen (specimen) BLOOD SPECIMEN / Unknown 01/14/2013 12:50 PM CDT 01/14/2013 12:41 PM CDT us Elle Red MD SEND OUTS Final Result [facility] LABORATORY INTERNAL ZIP [id number] [place] [address] from Last 3 Months or Most Recently [...] 9:19 PM 05/09/2008 3:38 PM Care Teams Facility Service Manager Relationship Specialty Start Date End Date Pcp, No . PCP - General 09/20/18
[2024-11-09 04:26] VITALS: BP 127/81; PULSE 85; RESP 18; TEMP 36.8; O2SAT 99; BMI 26.5
--- NOTE | 2024-11-09 04:31 | ED.DENTAL ---
HPI - Dental/Oral General Time Seen by Provider: 04:31 Date Seen: 11/09/24 Chief complaint: Dental/Oral/Mouth Injury/Pain Stated complaint: Left side tooth pain Time Seen by Provider: 11/09/24 04:26 Source: patient, RN notes reviewed and old records reviewed Mode of arrival: ambulatory Limitations: no limitations History of Present Illness HPI Narrative: 34-year-old female who comes in today with cracked tooth on left side. This happened 2 days ago, pain is gradually increased since then. Taking ibuprofen and Tylenol with minimal relief. Related Data Home Medications ?Medication ?Instructions ?Recorded ?Confirmed No Known Home Medications 11/09/24 11/09/24 Allergies Allergy/AdvReac Type Severity Reaction Status Date / Time No Known Drug Allergies Allergy Verified 11/09/24 04:28 [facility] Social History Smoking Status: Former smoker What tobacco products do you use: cigarettes Smoking quit date/years: <= 15 years ago Do you use any of these nicotine containing products: None How often do you have a drink containing alcohol: 2-3 times a week AUDIT-C Alcohol total score: 3 Non-prescribed substance use: former substance user and marijuana (any form) Exam Narrative: Exam Narrative: General: well nourished , NAD Head: Atraumatic and normocephalic ENT: External ears and external nose are normal. Left posterior molar is cracked with some mild surrounding erythema of the gingiva but no fluid collection. Eyes: Conjunctiva clear, pupils are equal reactive, external ocular motions are intact Neck: Full spontaneous range of motion of the neck Lungs: No respiratory distress Musculoskeletal: No tenderness or deformity Neurologic: No gross focal neurologic deficits Skin: No rashes Psych: Mood and affect are appropriate Const: Vital Signs, click to edit/add: Vital Signs - 24 hr 11/09/24 04:26 Temperature 98.2 F Pulse Rate [Right Pulse Oximeter] 85 Respiratory Rate 18 Blood Pressure [Le ft Upper Arm] 127/81 Pulse Oximetry 99 Oxygen Delivery Me thod Room Air Course Course ED Course: Patient seen examined, presents today with a cracked tooth number 17. Mild erythema around the tooth. Patient was started on amoxicillin and discharged with oxycodone to help with pain. Soft diet and follow-up with dentistry as soon as possible. Vital Signs Vital signs: Initial Vital Signs Temperature 98.2 F 11/09/24 04:26 Temperature Source Temporal Artery Scan 11/09/24 04:26 Pulse Rate 85 11/09/24 04:26 Respiratory Rate 18 11/09/24 04:26 Blood Pressure 127/81 11/09/24 04:26 Blood Pressure Mean 96 11/09/24 04:26 Blood Pressure Position Sitting 11/09/24 04:26 Pulse Oximetry 99 11/09/24 04:26 Oxygen Delivery Method Room Air 11/09/24 04:26 Vital Signs Temperature 98.2 F 11/09/24 04:26 Pulse Rate 85 11/09/24 04:26 Respiratory Rate 18 11/09/24 04:26 Blood Pressure 127/81 11/09/24 04:26 Pulse Oximetry 99 11/09/24 04:26 Oxygen Delivery Method Room Air 11/09/24 04:26 Temperature 98.2 F 11/09/24 04:26 Pulse Rate 85 11/09/24 04:26 Respiratory Rate 18 11/09/24 04:26 Blood Pressure 127/81 11/09/24 04:26 Pulse Oximetry 99 11/09/24 04:26 Oxygen Delivery Method Room Air 11/09/24 04:26 Discharge Plan Discharge Clinical Impression: Broken tooth Instructions: Acute Dental Trauma (ED) Additional Instructions: Continue Tylenol and ibuprofen. You may take each of these every 6 hours. Take oxycodone as needed for more severe pain. Soft or liquid diet until you follow-up with a dentist. Follow-up with dentistry as soon as possible. Activity Level: No Restrictions Discharge Diet: Full Liquid Prescriptions: No Action No Known Home Medications Follow Up/Referrals: Provider,Not a Local [Primary Care Provider, Family Practice] Stand Alone Forms: MyHealth Info Instructions
[2024-11-09 04:42] VITALS: BP 121/74; PULSE 81; RESP 18; TEMP 36.8; O2SAT 99
== END 2024-11-09 04:49 | disposition home or self-care (01) ==
LOC: ED 04:46
PROVIDERS: Emergency Provider Family Medicine
DX: K03.81 Cracked tooth (principal)
CPT/HCPCS: 99283

== ENCOUNTER 2025-06-05 08:50 | Emergency (ER) | payer OTHER, SELFPAY ==
--- OUTSIDE RECORDS SUMMARY | 2025-06-05 08:52 | XMS_ITS | Clinical Summary ---
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 Name Role Phone Pcp, No Primary Care Provider Unavailabl e Allergies No known active allergies Medications No known medications Active Problems ProblemNoted DateDiagnosed DateNexplanon in place05/26/2018Latent tuberculosis 10/24/2010 Overview (10/24/2010): Positive PPD September 2010 Resolved Problems ProblemNoted DateDiagnosed DateResolved DateMajor depressive disorder, recurrent episode, severe, specified as with psychotic rhwnfxny94/06/ Polysubstance cxyvuhxjxh83/06/Anxiety D/O, NOS.06/24/2008 06/24/2008nxiety Disorder NOS06/23/Major Depressive Disorder, Single Episode, Moderate.InsomniaSelf inflicted jupiqc2607/23/2017 Overview (05/25/2008): pt cuts on arms and face about 5x a month Immunizations ImmunizationAdministration DatesNext CpqVGxT45/31/2000,08/28/1999,03/26/1997HPV 9 (Gardasil 9)05/26/2018Hepatitis B (Peds)07/16/2000,12/05/1999,10/30/1999Human Papilloma Virus Cbybdyh4701/14/2013,07/01/2009Inactivated Polio Bqvuzgj7010/30/1999, 08/28/1999,05/21/1997Influenza A (H1N1), Inactivated (Age >=3 Years)05/27/2009 MMR10/30/1999,08/28/1999Meningococcal Vaccine (Menactra)07/01/2009Td (Age >=7 Years)04/16/2000Tdap07/01/2009Varicella Lwjodpd7207/01/2009,06/17/1994 Family History Medical HistoryRelationNameCommentsCancerMaternal GrandfatherbrainDiabetesMother pre-diabetesHeart DiseaseNo Family HistoryPsychiatric illnessNo Family History RelationNameStatusCommentsFatherAliveMaternal GrandfatherDeceasedMaternal GrandmotherAliveMotherAliveSister 1AliveSister 2AliveSister 3Alive Social History Tobacco UseTypesPacks/DayYears UsedDateSmoking Tobacco: FormerCigarettes Smokeless Tobacco: Never Tobacco Cessation:Counseling Given: Yes Alcohol UseStandard Drinks/WeekCommentsYes0 (1 standard drink = 0.6 oz pure alcohol)occassionalPHQ-2AnswerDate RecordedPHQ-2 Zhazb841 CommentsNoSex and Gender InformationValueDate RecordedSex Assigned at BirthNot on fileLegal SazGfoisf08/14/2013 5:41 AM CSTGender IdentityNot on fileSexual OrientationNot on fileOccupationIndustryJob Start DateJob 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 on fileNot on fileNot on file Last Filed Vital Signs Vital SignReadingTime TakenCommentsBlood Tdiqlmko765/7504 11:21 AM CDT Bpbfl384809/20/2018 11:21 AM RLZNlxiktqfkmy16.4 ??C (97.5 ??F)09/20/2018 11:21 AM CDTRespiratory Grki489012/28/2010 3:31 PM CDTOxygen Krhdeoqqef77%06/02/2018 8:45 AM CSTInhaled Oxygen Concentration--Rragbc37.6 kg (149 lb)09/20/2018 11:21 AM OUOPsbngq325.8 cm (5' 2.52)09/20/2018 11:21 AM CDTBody Mass Index26.804 11:21 AM CDT Plan of Treatment Health MaintenanceDue DateLast DoneCommentsDepression screening for age 12+ , 05/26/2018, 07/23/2017Tetanus ngsbess24, 04/16/2000BMI (ht and wt on same day) for age 18+, 06/02/2018, 05/26/2018, Additional history existsPap test for age 21-65 COVID-19 vaccine series (1 - 2024- season)2025 Influenza Vaccine (#1)2025Hepatitis B series for 19+Ratestaqc20/30/2001, 12/05/1999, 10/30/1999Hepatitis C screening for age 18-98Irayuaeai77/31/2013, 09/25/2010, 08/20/2008HIV for age 15-42Honltcfmg52/10/2018, 01/14/2013, 09/25/2010, Additional history existsHPV series for age 9-95Opoarylhi15/10/2018, 01/14/2013, 07/01/2009Pneumococcal series for age 6-49Aged OutNo longer eligible based on patient's age to complete this topic Procedures Procedure NamePriorityDate/TimeAssociated DiagnosisCommentsANTI HIV 1/2Routine 05/26/2018 12:12 PM DIRECTOR OF CLINICAL EDUCATION Screen for STD (sexually transmitted disease) GLASSWORKER THIN PREP PAP SCREEN WWUJQXNulzduf28/10/2018 11:50 AM DIRECTOR OF CLINICAL EDUCATION Screening for malignant neoplasm of cervix ANTI ZTMQpcxnao74/31/2013 12:50 PM CDT Screen for STD (sexually transmitted disease) from Last 3 Months or Most Recently Relevant to Health Maintenance Results * ANTI HIV 1/2 (05/26/2018 12:12 PM DIRECTOR OF CLINICAL EDUCATION)ComponentValueRef RangeTest Method Analysis TimePerformed AtPathologist SignatureHIV-1/HIV-2 ANTIBODYNon-Reactive Non-Iplwsxif73/10/2018 8:52 PM [facility] Comment:HIV-1 p24 and HIV-1/HIV-2 Ab not detected.Specimen (Source)Anatomical Location / LateralityCollection Method / VolumeCollection TimeReceived Time BloodBLOOD SPECIMEN / UnknownVenipuncture / Nnxqahu0905/26/2018 12:12 PM DIRECTOR OF CLINICAL EDUCATION 05/26/2018 12:14 PM DIRECTOR OF CLINICAL EDUCATION Narrative Authorizing ProviderResult TypeResult StatusMary Lou Helms MDSEND OUTSFinal ResultPerforming OrganizationAddressCity/State/ZIP CodePhone Number [facility] [address] [place] [address], * GLASSWORKER THIN PREP PAP SCREEN IMAGED [[id number]] (05/26/2018 11:50 AM DIRECTOR OF CLINICAL EDUCATION)Component ValueRef RangeTest MethodAnalysis TimePerformed AtPathologist SignatureCase ReportGynecologic Cytology Report ? Case: [id number] ? Authorizing Provider: ??Mary Lou Helms MD ? Collected: ? 05/26/2018 1150 ? Ordering Location: ? [facility] ?? Received: ?05/26/2018 1208 ? Clinic ? First Screen: ?Cleo Sheikh ? Specimen: ?GLASSWORKER ThinPrep Vial Screening, Cervical ? 06/07/2018 12:[address] [facility] INTERPRETATION/RESULTNEGATIVE FOR INTRAEPITHELIAL LESION OR MALIGNANCY (NIL) (none)06/07/2018 12:[address] [facility] at 1255 CSTORGANISM(S)Shift in marie suggestive of bacterial lbqqwrpcy00/22/2018 12:[address] [facility] LABORATORYSPECIMEN ADEQUACYSatisfactory for evaluation Endocervical component syjasdv2706/07/2018 12:[address] [facility]HPV REQUESTHPV if ASCUS06/07/2018 12:[address] [facility] LABORATORYDate of LMP1 12:[address] [facility] LABORATORYLast Pap Svar735904 12:55 PM [facility]Last Pap ResultFirst Pap/Unknown 06/07/2018 12:[address] [facility] LABORATORYAbnormal Pap or [place] Bx in last 5 kmkwlRy4706/07/[address] [facility] LABORATORYMenstrual StatusRegular Mevcbjm5806/07/[address] [facility] LABORATORYColp Bx Done ElnrtJf6806/07/2018 12:55 PM [facility]OR[facility]ORYAdditional InformationNone given 06/07/2018 12:[address] [facility] LABORATORYAutomated SrsgqdGlpngqlxpj88/22/2018 12:[address] LABORATORYComment:Specimen processed successfully by automated sucker machine operator device, ThinPrep Imaging System, [employer]NoteThe pap test is a screening technique, not a diagnostic procedure. ??It is used primarily to screenfor squamous cancers and precursor lesions. ??Published studies have shown that it is subject to both false negative and false positive results. ??The pap test should not be used as the sole means todiagnose or exclude pre-malignant and malignant lesions. Cytology is screened and interpreted at [facility] - [address], [place] [address] and [facility] - [address]; [place] [address] and [facility] - [address]; [place] [address] and [facility] [address]; [place] [address] 06/07/2018 12:55 PM [facility]-C[facility]TRAL LABORATORYSpecimen (Source)Anatomical Location / LateralityCollection Method / VolumeCollection TimeReceived TimeOther (Cervical)Non-Blood / Jmnxbxc4305/26/2018 11:50 AM DIRECTOR OF CLINICAL EDUCATION 05/26/2018 12:08 PM DIRECTOR OF CLINICAL EDUCATION Narrative Authorizing ProviderResult TypeResult StatusAmy Bryanna Helms MDPATHOLOGY/CYTOLOGY Final ResultPerforming OrganizationAddressCity/State/ZIP CodePhone Number [facility] [address] [place] [address], [place] * ANTI HCV (01/14/2013 12:50 PM CDT)ComponentValueRef RangeTest MethodAnalysis TimePerformed AtPathologist SignatureANTI HCVNon-reactiveABBOTT ST. FRANCIS HOSPITALpecimen (Source)Anatomical Location / LateralityCollection Method / VolumeCollection TimeReceived TimeBlood specimen (specimen)BLOOD SPECIMEN / Imnfyuw2901/14/2013 12:50 PM CDT01/14/2013 12:41 PM CDT Narrative Authorizing ProviderResult TypeResult StatusMegan Gladen MDSEND OUTSFinal Result Performing OrganizationAddressCity/State/ZIP CodePhone Number [facility] [place]NAL [place]IP [address] [place] [address] from Last 3 Months or Most Recently Relevant to Health Maintenance Advance Directives * Full Code (Latest Code Status on File) Date ActivatedDate InactivatedComments11/15/2008 3:24 PM11/24/2008 12:59 PM * Full Code Date ActivatedDate InactivatedComments08/19/2008 6:43 PM08/26/2008 1:09 PM * Full Code Date ActivatedDate InactivatedComments06/22/2008 8:24 PM06/29/2008 1:53 PM * Full Code Date ActivatedDate KkvaonuvvmpOhhjavun83/19/2008 9:19 PM05/09/2008 3:38 PM Care Teams Team MemberRelationshipSpecialtyStart DateEnd Date Pcp, No PCP - General09/20/18
[2025-06-05 08:59] VITALS: BP 127/89; PULSE 85; RESP 12; TEMP 36.3; O2SAT 99; BMI 27.4
[2025-06-05 09:00] VITALS: PULSE 60; RESP 14; O2SAT 97
--- NOTE | 2025-06-05 09:42 | ED_ITS ---
HPI - General Adult General Chief complaint: Nausea/Vomiting Stated complaint: cough, nausea Time Seen by Provider: 06/05/25 09:24 History of Present Illness HPI narrative: Patient is a 35-year-old healthy woman who presents with 3 days of nausea and vomiting. She has no significant abdominal pain. She is not able to keep any food down. She has had no diarrhea but really has not had much for bowel movements in the last several days. No blood in her vomitus. She has no reflux symptoms. No fevers no chills no night sweats. She has taken home test which are negative. No one else at home is sick and he has had no recent travel. Related Data Home Medications ?Medication ?Instructions ?Recorded ?Confirmed No Known Home Medications 11/09/2405/18 Allergies Allergy/AdvReac Type Severity Reaction Status Date / Time No Known Drug Allergies Allergy Verified 06/05/25 08:58 Review of Systems Status of ROS: Reports: 10 or more systems reviewed and unremarkable except as noted in History and below PFSH PFS Social History Smoking Status: Current every day smoker Do you use any of these nicotine containing products: Vaping Products Second hand tobacco smoke exposure: No How often do you have a drink containing alcohol: 2-3 times a week AUDIT-C Alcohol total score: 3 Non-prescribed substance use: marijuana (any form) Non-prescribed substance use details: occasional thc use Exam Narrative: Exam Narrative: EXAM GENERAL: Patient appears comfortable and well. EYES: No scleral icterus. LYMPH: No supraclavicular or cervical lymphadenopathy. SKIN: Visible skin seen during exam normal or with benign process only. EXT: No dependent lower extremity pedal edema. HEART: Regular rate and rhythm with no murmurs, rubs, or gallops. LUNGS: Clear to auscultation bilaterally with no crackles or wheezes. ABD: Soft, non tender, non distended. PSYCH: Good eye contact, speech is not pressured. Const: Vital Signs, click to edit/add: Vital Signs - 24 hr 06/05/25 08:59 06/05/25 09:00 Temperature 97.4 F L Pulse Rate 60 Pulse Rate [Pulse Oximeter] 85 Respiratory Rate 12 14 Blood Pressure [Ri ght Upper Arm] 127/89 Pulse Oximetry 99 97 Oxygen Delivery Me thod Room Air Course Course ED Course: Patient seen and examined. IV is placed. Normal saline Zofran started. CBC CMP lipase pending. Vital Signs Vital signs: Initial Vital Signs Temperature 97.4 F L 06/05/25 08:59 Temperature Source Temporal Artery Scan 06/05/25 08:59 Pulse Rate 85 06/05/25 08:59 Pulse Rhythm Regular 06/05/25 08:59 Respiratory Rate 12 06/05/25 08:59 Blood Pressure 127/89 06/05/25 08:59 Blood Pressure Mean 101 06/05/25 08:59 Blood Pressure Position Sitting 06/05/25 08:59 Pulse Oximetry 99 06/05/25 08:59 Oxygen Delivery Method Room Air 06/05/25 08:59 Vital Signs Temperature 97.4 F L 06/05/25 08:59 Pulse Rate 85 06/05/25 08:59 Respiratory Rate 12 06/05/25 08:59 Blood Pressure 127/89 06/05/25 08:59 Pulse Oximetry 99 06/05/25 08:59 Oxygen Delivery Method Room Air 06/05/25 08:59 Temperature 97.4 F L 06/05/25 08:59 Pulse Rate 60 06/05/25 09:00 Respiratory Rate 14 06/05/25 09:00 Blood Pressure 127/89 06/05/25 08:59 Pulse Oximetry 97 06/05/25 09:00 Oxygen Delivery Method Room Air 06/05/25 08:59 Medications Administered Medications: Discontinued Medications Generic Name Dose Route Start Last Admin Trade Name Freq PRN Reason Stop Dose Admin Sodium Chloride 1,000 mls @ 1,000 mls/hr 06/05/25 09:38 06/05/25 09:50 0.9 % Sodium Chloride 1000 Ml IV 06/05/25 10:37 1,000 mls/hr .Q1H JVAED Administration Ondansetron HCl 4 mg 06/05/25 09:38 06/05/25 09:50 Ondansetron 2 Mg/Ml Inj IVP 06/05/25 09:39 4 mg ONCE ONE Administration Medical Decision Making MDM Narrative Medical decision making narrative: Patient is a 35-year-old woman who tests positive for influenza. She has nausea vomiting. Rest of her labs are normal serum is negative. She did receive IV fluids IV Zofran. Will be discharging her home on rest fluids Tylenol Motrin Tamiflu and Zofran p.r.n. follow up with her doctor as needed. Lab Data Labs: Lab Results 06/05/25 06/05/25 Range/Units 09:04 09:50 WBC 3.99 L (4.50-11.00) K/uL RBC 4.83 (4.00-5.20) m/uL Hgb 13.7 (12.0-16.0) gm/dL Hct 40.4 (33.0-51.0) % MCV 84 (80-100) fL MCH 28 (26-34) pg MCHC 34 (32-36) gm/dL RDW Coeff of Mikayla 13.0 (11.5-15.5) % Plt Count 215 (140-440) K/uL Neut % (Auto) 67.8 (42.0-72.0) % Lymph % (Auto) 21.6 (20-44) % Coleman % (Auto) 9.3 (0.0-11.0) % Eos % (Auto) 1.0 (0.0-7.0) % Baso % (Auto) 0.3 (0.0-3.0) % Neut # (Auto) 2.70 (1.7-7.0) K/uL Lymph # (Auto) 0.90 (0.90-2.90) K/uL Coleman # (Auto) 0.40 (0.00-0.90) K/UL Eos # (Auto) 0.00 (0.00-0.50) K/uL Baso # (Auto) 0.00 (0.00-0.30) K/uL Abs Immat Gran (auto) 0.00 (0.00-0.30) K/uL Imm/Tot Granulo (auto) 0.0 % Sodium 138 (135-149) mmol/L Potassium 3.6 (3.6-5.1) mmol/L Chloride 103 (96-114) mmol/L Carbon Dioxide 22 (20-32) mmol/L Anion Gap 13 (7-15) mEq/L BUN 8 (5-24) mg/dL Creatinine 0.6 (0.5-1.5) mg/dL Estimated Creat Clear 105.48 Estimated GFR 121 ml/min Glucose 89 (60-115) mg/dL Calcium 9.2 (8.4-10.6) mg/dL Total Bilirubin 0.5 (0.1-1.5) mg/dL AST 32 (12-35) U/L ALT 24 (4-35) U/L Alkaline Phosphatase 74 (40-150) U/L Total Protein 8.3 (6.0-8.3) g/dL Albumin 4.9 (3.3-5.0) g/dL Lipase 21 L (23-300) U/L HCG, Qual Negative (Negative) SARS-CoV-2 (PCR) Negative SARS-CoV-2 (Negative) Influenza Type A (PCR) Negative PCR FLU A (Negative) Influenza Type B (PCR) POSITIVE PCR FLU B A (Negative) RSV (PCR) Negative PCR RSV (Negative) Discharge Plan Discharge Clinical Impression: Influenza Patient Disposition: Home, Self-Care Condition: Stable Instructions: Influenza (ED) Additional Instructions: Tamiflu as directed Zofran as directed for nausea Rest Fluids Tylenol Motrin Follow-up with your doctor as needed. Activity Level: No Restrictions Discharge Diet: Regular Prescriptions: No Action No Known Home Medications Follow Up/Referrals: Provider,Not a Local [Primary Care Provider, Family Practice] Stand Alone Forms: [facility] Info Instructions
[2025-06-05] MEDS: ONDANSETRON 2 MG/ML inj 4 MG IVP (09:50)
[2025-06-05 09:52] LABS: PCR FLU A Negative PCR FLU A (Negative); PCR RSV Negative PCR RSV (Negative); SARS PCR* Negative SARS-CoV-2 (Negative)
[2025-06-05 10:03] LABS: Hematocrit* 40.4 % (33.0-51.0); Hemoglobin* 13.7 gm/dL (12.0-16.0); Immature Granulocytes Abs Auto 0.00 K/uL (0.00-0.30); Immature Granulocytes Pct Auto 0.0 %; Mean Corpuscular HGB Conc 34 gm/dL (32-36); Mean Corpuscular Hemoglobin 28 pg (26-34); Mean Corpuscular Volume 84 fL (80-100); RDW Coefficient of Variation % 13.0 % (11.5-15.5); Red Blood Count* 4.83 m/uL (4.00-5.20); White Blood Count* 3.99 K/uL (4.50-11.00)
[2025-06-05 10:08] LABS: Lymphocytes Absolute Auto 0.90 K/uL (0.90-2.90); Slide Review Reflex No
[2025-06-05 10:23] LABS: Albumin* 4.9 g/dL (3.3-5.0); Chloride* 103 mmol/L (96-114); Potassium* 3.6 mmol/L (3.6-5.1); Sodium* 138 mmol/L (135-149)
[2025-06-05 10:26] LABS: Alanine Aminotransferase* 24 U/L (4-35); Alkaline Phosphatase* 74 U/L (40-150); Anion Gap 13 mEq/L (7-15); Aspartate Amino Transferase* 32 U/L (12-35); Bilirubin Total* 0.5 mg/dL (0.1-1.5); Blood Urea Nitrogen* 8 mg/dL (5-24); Calcium* 9.2 mg/dL (8.4-10.6); Carbon Dioxide* 22 mmol/L (20-32); Creatinine* 0.6 mg/dL (0.5-1.5); Est. Creatinine Clearance* 105.48; Estimated Glomerular Filt Rate 121 ml/min; Glucose* 89 mg/dL (60-115); Total Protein* 8.3 g/dL (6.0-8.3)
[2025-06-05 10:33] LABS: HCG Qualitative Serum* Negative (Negative)
[2025-06-05 11:00] VITALS: BP 118/79; PULSE 68; RESP 14; O2SAT 98
== END 2025-06-05 11:21 | disposition home or self-care (01) ==
PROVIDERS: Emergency Provider Internal Medicine
DX: J10.1 Influenza due to other identified influenza virus with other respiratory manifestations (principal); F17.210 Nicotine dependence, cigarettes, uncomplicated
CPT/HCPCS: 36415; 80053; 83690; 84703; 85025; 87631; 96361; 96374; 99283; 99284; 99285; J2405; J7030